=== PATIENT | female | born 1990 | race Two or more races ===

== ENCOUNTER 2022-08-22 11:46 | Emergency (ER) | payer MEDICAID ==
[~2022-08-22] VITALS: Ht 154.9 cm; Wt 60.0 kg
[2022-08-22 12:19] VITALS: BP 130/77; PULSE 83; RESP 16; TEMP 98.5; O2SAT 100
[2022-08-22] MEDS ORDERED: TETRACAINE 0.5% OPHTH DROPS 4ML LEFTEYE ONE (14:15)
[2022-08-22] MEDS ORDERED: FLUORESCEIN SODIUM 1MG/STRIP LEFTEYE ONE (14:15)
[2022-08-22] MEDS ORDERED: PRED5DRO22 LEFTEYE (16:47)
[2022-08-22] MEDS ORDERED: CIPR5DRO EACHEYE (16:47)
== END 2022-08-22 17:06 | disposition home or self-care (01) ==
LOC: ER 11:46
DX: S05.12XA Contusion of eyeball and orbital tissues, left eye, initial encounter (principal); W20.8XXA Other cause of strike by thrown, projected or falling object, initial encounter; Y93.89 Activity, other specified; Y92.89 Other specified places as the place of occurrence of the external cause; Y99.8 Other external cause status
CPT/HCPCS: 70486; 99284

== ENCOUNTER 2023-04-07 14:24 | Emergency (ER) | payer MEDICAID, OTHER ==
[~2023-04-07] VITALS: Ht 154.9 cm; Wt 59.0 kg
[~2023-04-07 14:24] MED LIST: CIPR5DRO EACHEYE; PRED5DRO22 LEFTEYE
[2023-04-07 14:28] VITALS: TEMP 98.2; O2SAT 100
[2023-04-07] MEDS ORDERED: TC025C15 TP (15:24)
[2023-04-07 15:33] VITALS: BP 111/69; PULSE 100; RESP 18
== END 2023-04-07 15:58 | disposition home or self-care (01) ==
LOC: ER 14:24
DX: L30.9 Dermatitis, unspecified (principal)
CPT/HCPCS: 81025; 99283

== ENCOUNTER 2024-01-11 22:28 | Emergency (ER) | payer OTHER ==
[~2024-01-11 22:28] MED LIST changes: +TC025C15 TP
[2024-01-11] MEDS: SODIUM CHLORIDE 0.9% 1,000 ML IV ONE ×2 (22:47)
[2024-01-11 23:01] VITALS: BP 142/98; PULSE 92; RESP 14; O2SAT 100
== END 2024-01-11 23:16 | disposition short-term general hospital (02) ==
LOC: ER 22:28
DX: S51.811A Laceration without foreign body of right forearm, initial encounter (principal); Z98.890 Other specified postprocedural states; Z79.899 Other long term (current) drug therapy; X58.XXXA Exposure to other specified factors, initial encounter; Y93.89 Activity, other specified; Y92.89 Other specified places as the place of occurrence of the external cause; Y99.8 Other external cause status
CPT/HCPCS: 99291; 96360; 86850; 86900; 86901; 86920; 36415; 71045; J7030; P9016